=== PATIENT | male | born 1995 ===

== ENCOUNTER 2018-12-06 12:59 | Emergency (ER) | payer MEDICAID ==
[2018-12-06 13:31] VITALS: RESP 18; TEMP 98.2; BMI 24.1
--- NOTE | 2018-12-06 13:53 | ED PDOC ---
Arrival/HPI - History of Present Illness Narrative History of Present Illness (Text): 12/06/18 13:54 Patient is a 23 year old male with no significant past medical history presenting with chief complaint of left sided facial swelling and fatigue which began two days prior. Patient also admits to testicular pain four days ago which has resolved. Patient states his vaccination records are up to date and denies any international travel. Pain is worsened with swallowing. Denies sick contacts. Last sexually active two years prior. Denies fevers, chills, chest pain, shortness of breath, abdominal pain, diarrhea, dysuria. Time/Duration: < week Symptom Onset: Sudden Symptom Course: Unchanged Quality: Pressure <Alonso Clinton - Last Filed: 12/06/18 14:13> <Yamile Zacarias - Last Filed: 12/06/18 14:54> - General Time Seen by Provider: 12/06/18 13:00 Past Medical History - Provider Review Nursing Documentation Reviewed: Yes - Travel History Have you recently traveled outside [place] w/in the past 3 mons?: No - Past History Past History: No Previous - Past Medical History Past Medical History: No Previous <Alonso Clinton - Last Filed: 12/06/18 14:13> Family/Social History - Physician Review Nursing Documentation Reviewed: Yes Family/Social History: No Known Family HX Smoking Status: Never Smoked Hx Alcohol Use: No Hx Substance Use: No <Alonso Clinton - Last Filed: 12/06/18 14:13> Allergies/Home Meds <Alonso Clinton - Last Filed: 12/06/18 14:13> <Yamile Zacarias - Last Filed: 12/06/18 14:54> Allergies/Adverse Reactions: Allergies No Known Allergies Allergy (Unverified 12/06/18 13:48) Review of Systems - Review of Systems Constitutional: Fatigue ENT: Other (facial swelling). absent: Sore Throat, Sinus Congestion Respiratory: Normal Cardiovascular: Normal Gastrointestinal: Normal Genitourinary Male: Normal. absent: Dysuria, Hematuria, Urinary Output Changes <Alonso Clinton L - Last Filed: 12/06/18 14:13> Physical Exam Vital Signs Reviewed: Yes Vital Signs Temp Pulse Resp BP Pulse Ox 12/06/18 13:31 98.2 F 61 18 104/60 98 Temperature: Afebrile Blood Pressure: Normal Pulse: Regular Respiratory Rate: Normal Appearance: Positive for: Well-Appearing, Comfortable Pain Distress: None Mental Status: Positive for: Alert and Oriented X 3 - Systems Exam Head: Present: Atraumatic, Normocephalic Pupils: Present: PERRL Extroacular Muscles: Present: EOMI Conjunctiva: Present: Normal Mouth: Present: Moist Mucous Membranes, Other (left sided facial swelling, wisdom teeth eruption ) Neck: Present: Normal Range of Motion. No: Lymphadenopathy Abdomen: No: Tenderness, Distention Neurological: Present: GCS=15, CN II-XII Intact, Speech Normal Skin: Present: Warm, Dry, Normal Color Lymphatic: No: Cervical Adenopathy, Axillary Adenopathy, Inguinal Adenopathy Psychiatric: Present: Alert, Oriented x 3, Normal Insight, Normal Concentration <Alonso Clinton - Last Filed: 12/06/18 14:13> Vital Signs Temp Pulse Resp BP Pulse Ox 12/06/18 13:31 98.2 F 61 18 104/60 98 <Yamile Zacarias - Last Filed: 12/06/18 14:54> Medical Decision Making ED Course and Treatment: Impression: facial swelling Plan: - Toradol - Reassess and disposition Prior Visits: None Progress Notes: <Alonso Clinton - Last Filed: 12/06/18 14:13> ED Course and Treatment: 12/06/18 14:50 Patient seen by resident and then evaluated by me. Patient presented complaining of L sided facial swelling. He reports that initially his teeth hurt but he started to google and was concerned for mumps per web md. Reports complete vaccinations hx for MMR. Denies fever or lethargy. Reports pain to the L side of his mouth when eating and with palpation x 2 days. Reports 4 days ago that he had 1 episode of groin pain that has now resolved. Denies current groin pain, testicle pain, scrotal swelling or penile discharge. Physical exam shows normal exam with circumsized penis with no scrotal tenderness or swelling. Oropharyngeal exam shows partially erupted R sided wisdom teeth and L side shows start of erupting L sided wisdom tooth with tenderness to palpation. No lymph node swelling or neck swelling. He reports that he has a dentist to follow-up wtih. - Medication Orders Current Medication Orders: Discontinued Medications Ketorolac Tromethamine (Toradol) 60 mg IM STAT STA Stop: 12/06/18 13:51 <Yamile Zacarias - Last Filed: 12/06/18 14:54> Disposition/Present on Arrival - Present on Arrival Any Indicators Present on Arrival: No - Disposition Have Diagnosis and Disposition been Completed?: Yes Disposition Time: 14:06 Patient Plan: Discharge <Alonso Clinton - Last Filed: 12/06/18 14:13> - Present on Arrival Any Indicators Present on Arrival: No - Disposition Have Diagnosis and Disposition been Completed?: Yes Patient Plan: Discharge <Yamile Zacarias - Last Filed: 12/06/18 14:54> - Disposition Diagnosis: Tooth eruption Disposition: HOME/ ROUTINE Patient Problems: Current Active Problems Problem Status Onset Tooth eruption Acute Condition: GOOD Discharge Instructions (ExitCare): Impacted Tooth Additional Instructions: Follow-up with your dentist DONALDO. Follow up with your primary medical doctor within one week Please take your antibiotic as prescribed. Pain medication as needed. Return to the emergency department if symptoms worsen Prescriptions: Amoxicillin/Clavulanate [Augmentin 875 MG-125 MG] 1 tab PO BID #20 tab oxyCODONE/Acetaminophen [Percocet 5/325 mg Tab] 1 ea PO Q6 PRN #15 tab PRN Reason: Pain, Severe (8-10)
[2018-12-06 15:31] VITALS: BP 110/72; PULSE 78; O2SAT 99
== END 2018-12-06 15:42 | disposition home or self-care (01) ==
LOC: ED 12:59
DX: K00.6 Disturbances in tooth eruption (principal)
CPT/HCPCS: 96372; 99284; J1885